=== PATIENT | male | born 1965 | race Caucasian/White ===

== ENCOUNTER 2021-07-08 21:06 | Emergency (ER) | payer OTHER ==
[2021-07-08 21:58] VITALS: BP 141/90; PULSE 68; RESP 16; TEMP 98.7
[2021-07-08] MEDS ORDERED: DIPH,PERTUS(ACELL)TETVAC-LF 0.5 ML VIAL IM ONE (22:11)
[2021-07-08] MEDS ORDERED: IBUPROFEN 400 MG TAB PO STA (22:31)
[2021-07-08] MEDS ORDERED: TOPICAL SKIN ADHESIVE 1 EACH AMP TOPICAL ONE (22:33)
--- NOTE | 2021-07-08 22:46 | XR ---
EXAMINATION TYPE: XR finger LT DATE OF EXAM: 07/08/2021 COMPARISON: NONE HISTORY: Trauma. Laceration TECHNIQUE: 3 views FINDINGS: There is laceration of the soft tissues on the middle phalanx of the index finger. There is small areas of increased density that could be foreign bodies at the skin surface. There is also tin y metallic densities at the anterior aspect of the distal phalanx consistent with small metallic fore ign bodies. IMPRESSION: Laceration deformity with foreign bodies. No fracture seen.
[2021-07-08] MEDS ORDERED: LIDOCAINE/EPINEPHR/TETRACAINE 5 ML BOTTLE TOPICAL ONE (23:50)
--- NOTE | 2021-07-09 00:11 | ED ---
Wound/Laceration HPI - General Chief Complaint: Wound/Laceration Stated Complaint: Left Index Finger Laceration Time Seen by Provider: 07/08/21 22:03 Source: patient Mode of arrival: ambulatory Limitations: no limitations - History of Present Illness Initial Comments: Patient is a 55-year-old male presenting for evaluation of finger injury. Patient states that today when using his chainsaw he got distracted and the saw made contact with his left index finger. Patient applied pressure and reported to the ER for evaluation. Patient states that he can still feel and move the finger. He states he is not up-to-date on his tetanus vaccination. He denies numbness, tingling, weakness, loss of range of motion, hand pain, fever, chills, nausea, vomiting, loss of consciousness. - Related Data Allergies Allergy/AdvReac Type Severity Reaction Status Date / Time Unable to Assess Allergy Verified 07/08/21 21:54 Review of Systems ROS Statement: Those systems with pertinent positive or pertinent negative responses have been documented in the HPI. ROS Other: All systems not noted in ROS Statement are negative. Past Medical History Past Medical History: No Reported History History of Any Multi-Drug Resistant Organisms: None Reported Past Surgical History: No Surgical Hx Reported Past Psychological History: Anxiety, Depression Smoking Status: Never smoker Past Alcohol Use History: None Reported Past Drug Use History: None Reported General Exam Limitations: no limitations General appearance: alert, in no apparent distress Head exam: Present: atraumatic, normocephalic, normal inspection Eye exam: Present: normal appearance, EOMI. Absent: scleral icterus Neck exam: Present: normal inspection Left Hand Wrist exam: Present: other (3 lacerations in close proximity measuring approximately 2 cm each present on the posterior aspect of the left index finger) Neuro motor exam: Present: wrist extension intact, fingers 2-5 abduction intact Neurosensory exam: Present: 2-point discrimination Vascular: Absent: vascular compromise Neurological exam: Present: alert, oriented X3, CN II-XII intact Psychiatric exam: Present: normal affect, normal mood Skin exam: Present: warm, dry. Absent: intact Expanded Type of lesion: Present: laceration Course Vital Signs 07/08/21 21:55 Temperature 98.7 F Pulse Rate 68 Respiratory 16 Rate Blood Pressure 141/90 O2 Sat by Pulse 100 Oximetry Medical Decision Making - Medical Decision Making Patient is a 55-year-old male presenting with chief complaint of finger laceration. He sustained the laceration after an accident with a chain saw. The laceration is located on the posterior aspect of the distal left pointer finger. On examination there are 3 lacerations each measuring approximately 2 cm in length beside each other. On initial examination there is no gross foreign body or tendon involvement. X-ray obtained shows several small foreign metallic foreign bodies and no fracture. Due to the close proximity of the lacerations, there is no way to suture them as repairing one side would prevent repair on the opposing side. Lacerations were flushed with 1 L of sterile water. Several foreign bodies were seen in the top where the sterile water was collected. No gross foreign body on examination and exploration of the wound. Let solution was applied after irrigation as this caused increased bleeding that was slightly difficult to control with pressure alone. After let solution and pressure were applied bleeding was controlled. Dermabond skin adhesive was applied to the wounds and wounds were covered with gauze. Patient was given Tdap Injection. Educated patient on signs of infection to monitor for. Follow- up with PCP in the next week. I educated the patient on alarms symptoms and return parameters. Answered all questions. Report back to ER if any worsening symptoms. Patient conveyed verbal understanding and agreed to the plan. Disposition Clinical Impression: Laceration Disposition: HOME SELF-CARE Condition: Good Instructions (If sedation given, give patient instructions): Laceration (DC), Finger Laceration (ED), Skin Adhesive Care (ED) Additional Instructions: Follow-up with PCP this week. Monitor for signs of infection. Report back to ER with any worsening symptoms Is patient prescribed a controlled substance at d/c from ED?: No Referrals: Nonstaff,Physician [REFERRING] - 07/16/21 Time of Disposition: 00:11
== END 2021-07-09 00:25 | disposition home or self-care (01) ==
LOC: EC 21:06
DX: S61.221A Laceration with foreign body of left index finger without damage to nail, initial encounter (principal); F41.9 Anxiety disorder, unspecified; F32.A Depression, unspecified; Z23 Encounter for immunization; W31.2XXA Contact with powered woodworking and forming machines, initial encounter
CPT/HCPCS: 12001; 90471; 90715; 99283

== ENCOUNTER → 2022-03-06 | Outpatient (CLI) | payer OTHER ==
--- NOTE | 2022-03-06 14:22 | XR ---
EXAMINATION TYPE: XR sinus DATE OF EXAM: 03/06/2022 CLINICAL HISTORY: pain Four views of the paranasal sinuses are submitted. Paranasal sinuses demonstrate normal aeration and development. No air-fluid levels are seen. There is no evidence for mucosal thickening. Nasal sep luis carlos is midline. No evidence for bony destructive process. IMPRESSION: Unremarkable evaluation of the paranasal sinuses.
== END | disposition home or self-care (01) ==
LOC: RADXRMAIN 13:12
PROVIDERS: ATTEND Family Medicine
DX: J32.0 Chronic maxillary sinusitis (principal)
CPT/HCPCS: 70220